=== PATIENT | female | born 1975 ===

== ENCOUNTER 2020-11-09 09:30 | Inpatient (IN) | payer OTHER ==
[~2020-11-09] VITALS: Ht 157.5 cm; Wt 72.6 kg
[2020-11-09] MEDS ORDERED: SYNTHROID75 MCG PO (15:47)
[2020-11-09] MEDS ORDERED: PROTONIX40 MG PO (15:47)
[2020-11-09] MEDS ORDERED: ELAVIL PO (15:47)
[2020-11-09] MEDS ORDERED: LIBRAX PO (15:48)
[2020-11-09] MEDS ORDERED: BREO IH (15:48)
[2020-11-16] MEDS ORDERED: BREO ELLIPTA 21 EACH (16:05)
[2020-11-16] MEDS ORDERED: TOPIRAMATE50 MG (16:05)
[2020-11-16] MEDS ORDERED: AMITRIPTYLINE H25 MG (16:05)
[2020-11-16] MEDS ORDERED: CHLORDIAZEPOXI1 EACH (16:07)
[2020-11-19] MEDS ORDERED: HYOSCYAMINE0.125 M1 SL (09:07)
[2020-11-19] MEDS ORDERED: ULTRACET PO (09:07)
[2020-11-19] MEDS ORDERED: NORFLEX100MG PO (09:09)
[2020-11-19] MEDS ORDERED: PROTONIX40 MG PO (09:09)
[2020-11-19] MEDS ORDERED: INTESTINEX680 M1 PO (09:09)
== END 2020-11-19 09:37 | disposition home or self-care (01) | DRG 334 ==
LOC: O/R 11-16 08:17 → SURH 11-16 08:17
PROVIDERS: ADMIT Surgery; ATTEND Surgery
PROC: 0DTP4ZZ Resection of Rectum, Percutaneous Endoscopic Approach (ICD-10-PCS; principal; 2020-11-16 10:10)
DX: K57.32 Diverticulitis of large intestine without perforation or abscess without bleeding (principal); R10.32 Left lower quadrant pain; K58.9 Irritable bowel syndrome, unspecified; Z20.822 Contact with and (suspected) exposure to COVID-19